=== PATIENT | female | born 1940 | race Caucasian/White ===

== ENCOUNTER → 2018-04-05 12:46 | Outpatient (CLI) | payer OTHER, SELFPAY ==
--- NOTE | 2018-04-05 | DI.MG.S_ITS ---
BILATERAL DIGITAL SCREENING MAMMOGRAM 3D/2D WITH CAD: 04/05/2018 CLINICAL: Routine screening. Family history of breast cancer. Comparison is made to exams dated: 03/22/2017 mammogram, 03/20/2016 mammogram, 03/06/2016 mammogram, and 03/05/2015 mammogram - [facility]. The tissue of both breasts is heterogeneously dense. This may lower the sensitivity of mammography. Current study was also evaluated with a Computer Aided Detection (CAD) system. There are benign calcifications in the left breast. No significant masses, calcifications, or other findings are seen in either breast. There has been no significant interval change. IMPRESSION: There is no mammographic evidence of malignancy. A 1 year screening mammogram is recommended. This exam was interpreted at Station ID: [id number]. NOTE: For mammograms, a report in lay terms will be sent to the patient. Approximately 15% of breast malignancies will not be visualized mammographically. In the management of a palpable breast mass, a negative mammogram must not discourage biopsy of a clinically suspicious lesion. Electronically Signed By: Agnes sabillon/jamison:04/05/2018 16:13:25 letter sent: Normal Exam ACR BI-RADS Category 2: Benign Finding(s) 3342F
== END ==
PROVIDERS: PCP Internal Medicine; Visit Provider Internal Medicine
DX: Z12.31 Encounter for screening mammogram for malignant neoplasm of breast (principal); Z80.3 Family history of malignant neoplasm of breast
CPT/HCPCS: 77063; 77067

== ENCOUNTER → 2018-08-16 13:56 | Outpatient (CLI) | payer MEDICARE, SELFPAY | PROVIDERS: PCP Internal Medicine; Visit Provider Ophthalmology | DX: H16.201 Unspecified keratoconjunctivitis, right eye (principal) | CPT/HCPCS: 87070; 87147; 87205; 87252 ==

== ENCOUNTER → 2018-08-26 08:12 | Outpatient (CLI) | payer MEDICARE, SELFPAY ==
[2018-08-26 09:51] LABS: Alanine Aminotransferase 42 IU/L (9-52); Aspartate Aminotransferase 25 IU/L (14-36); BUN Creatinine Ratio 28.6 (6-22); Blood Urea Nitrogen 20 mg/dL (7-17); Calcium 10.2 mg/dL (8.4-10.2); Carbon Dioxide 28 mmol/L (22-32); Chloride 104 mmol/L (98-107); Cholesterol 170 mg/dL (140-199); Estimated Glomerular Filt Rate > 60.0 mL/min (>60); Glucose 100 mg/dL (80-110); HDL Cholesterol 60 mg/dL (40-60); HEMOLYSIS < 15 (0-50); LDL Cholesterol Calculated 93 mg/dL (<100); Potassium 4.8 mmol/L (3.4-5.1); Sodium 139 mmol/L (137-145); Triglycerides 86 mg/dL (35-150)
[2018-08-26 10:36] LABS: TSH w/ Reflex to FT4 3.78 uIU/mL (0.47-4.68)
== END ==
PROVIDERS: PCP Internal Medicine; Visit Provider Internal Medicine
DX: E78.00 Pure hypercholesterolemia, unspecified (principal); R68.89 Other general symptoms and signs; Z13.1 Encounter for screening for diabetes mellitus
CPT/HCPCS: 36415; 80048; 80061; 84443; 84450; 84460

== ENCOUNTER → 2018-08-28 14:18 | Outpatient (CLI) | payer MEDICARE, SELFPAY | PROVIDERS: PCP Internal Medicine; Visit Provider Internal Medicine | DX: Z13.820 Encounter for screening for osteoporosis (principal); M85.851 Other specified disorders of bone density and structure, right thigh; Z82.62 Family history of osteoporosis | CPT/HCPCS: 77080 ==

== ENCOUNTER → 2018-12-05 11:07 | Outpatient (CLI) | payer MEDICARE, SELFPAY ==
[2018-12-05 12:24] LABS: Estimated Glomerular Filt Rate > 60.0 mL/min (>60)
== END ==
PROVIDERS: PCP Internal Medicine; Visit Provider Internal Medicine Gastroenterology
DX: R68.89 Other general symptoms and signs (principal)
CPT/HCPCS: 36415; 82565

== ENCOUNTER → 2019-01-03 12:30 | Outpatient (CLI) | payer MEDICARE, SELFPAY | PROVIDERS: PCP Internal Medicine; Visit Provider Internal Medicine Gastroenterology | DX: R68.89 Other general symptoms and signs (principal) ==

== ENCOUNTER → 2019-01-03 12:33 | Outpatient (CLI) | payer MEDICARE, SELFPAY ==
--- NOTE | 2019-01-03 | DI.CT.S_ITS ---
PROCEDURE: CT ABDOMEN PELVIS W CON INDICATIONS: other general symptoms and signs TECHNIQUE: After the administration of oral and intravenous contrast, 5 mm thick sections acquired from the diaphragms to the symphysis. 5 mm thick coronal and sagittal reformats were performed. For radiation dose reduction, the following was used: automated exposure control, adjustment of mA and/or kV according to patient size. COMPARISON: None. FINDINGS: Image quality: Excellent. ABDOMEN: Lung bases: Bilateral lower lobe scarring/atelectasis. Heart size is normal. Solid organs: Hepatic steatosis. Gallbladder unremarkable. Biliary system is non-dilated. 7 mm hypoattenuating lesion in the body of the pancreas, too small to characterize accurately. Spleen is normal in size and enhancement. No adrenal nodules. Kidneys are normal in size and enhancement, without hydronephrosis. Bilateral simple appearing renal cysts, measuring up to 7.2 cm on the right. Peritoneum and bowel: No evidence of bowel obstruction. No discrete colon mass identified. No free fluid or air. Incidental diverticulosis. Normal appendix Nodes and vessels: No retroperitoneal or mesenteric adenopathy. Aorta and inferior vena cava are normal in caliber. Small fat-containing umbilical hernia. PELVIS: Genitourinary: Bladder wall thickness is normal. Heterogeneous appearance of the uterus which could represent uterine fibroids although this could be further assessed with ultrasound. The Miscellaneous: No inguinal hernias or adenopathy. Bones: No suspicious bony lesions. No vertebral body compression fractures. IMPRESSION: No specific evidence of metastatic disease identified. No lymphadenopathy identified. Hepatic steatosis without focal liver lesion. Nonspecific hypoattenuating pancreatic lesion. This could be further assessed with continued surveillance with CT in one year. If clinically warranted, pancreatic protocol MRI could be considered. Colonic diverticulosis. Dictated by: Mundo Soto M.D. on 01/03/2019 at 15:19 Approved by: Mundo Soto M.D. on 01/03/2019 at 15:32
[2019-01-03 13:04] LABS: Estimated Glomerular Filt Rate > 60.0 mL/min (>60)
== END ==
PROVIDERS: Internal Medicine Gastroenterology; PCP Internal Medicine; Visit Provider Internal Medicine
DX: R68.89 Other general symptoms and signs (principal)
CPT/HCPCS: 36415; 74177; 82565; Q9967

== ENCOUNTER → 2019-04-07 10:58 | Outpatient (CLI) | payer MEDICARE, SELFPAY ==
--- NOTE | 2019-04-07 | DI.MG.S_ITS ---
BILATERAL DIGITAL SCREENING MAMMOGRAM 3D/2D WITH CAD: 04/07/2019 CLINICAL: Routine screening. Family history of breast cancer. Comparison is made to exams dated: 04/05/2018 mammogram and 03/22/2017 mammogram - [facility]. The tissue of both breasts is heterogeneously dense. This may lower the sensitivity of mammography. Current study was also evaluated with a Computer Aided Detection (CAD) system. There are benign calcifications in the left breast. No significant masses, calcifications, or other findings are seen in either breast. There has been no significant interval change. IMPRESSION: There is no mammographic evidence of malignancy. A 1 year screening mammogram is recommended. This exam was interpreted at Station ID: [id number]. NOTE: For mammograms, a report in lay terms will be sent to the patient. Approximately 15% of breast malignancies will not be visualized mammographically. In the management of a palpable breast mass, a negative mammogram must not discourage biopsy of a clinically suspicious lesion. Electronically Signed By: Fatimah lynn/jamison:04/07/2019 14:33:55 letter sent: Normal Exam ACR BI-RADS Category 2: Benign Finding(s) 3342F
== END ==
PROVIDERS: PCP Internal Medicine; Visit Provider Internal Medicine
DX: Z12.31 Encounter for screening mammogram for malignant neoplasm of breast (principal); Z80.3 Family history of malignant neoplasm of breast
CPT/HCPCS: 77063; 77067

== ENCOUNTER → 2019-10-28 12:46 | Outpatient (CLI) | payer MEDICARE, SELFPAY ==
--- NOTE | 2019-10-28 | DI.MRI.S_ITS ---
PROCEDURE: MR ABDOMEN WO/W CON INDICATIONS: Disease of pancreas, unspecified TECHNIQUE: Coronal HASTE, axial 2D FLASH in- and [id number]; axial breath-hold T2 FSE with fat saturation from the hepatic dome to the iliac crests. Oblique coronal thin-slice and radial thick slab HASTE through the biliary system. Dynamic axial VIBE during administration of contrast. Post-contrast coronal VIBE or 2D FLASH with fat saturation from the hepatic dome to the iliac crests. Optional diffusion weighted imaging and ADC may be performed. COMPARISON: [facility], CT, CT ABDOMEN PELVIS W CON, 01/03/2019, 13:52. FINDINGS: Image quality: There is motion artifact limiting evaluation Pancreas and biliary system: Within the body of the pancreas, there is a small oval thin-walled cyst demonstrated measuring up to 0.8 cm. There is possible communication with the main pancreatic duct although evaluation is limited by motion artifact. No definite associated enhancement following contrast administration. There is a small cystic lesion also demonstrated in the pancreatic tail measuring up to 0.4 cm. No definite associated enhancement. The main pancreatic duct is nondistended. 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 No discrete solid pancreatic mass identified. The gallbladder appears within normal limits without gallstones. There is mild biliary ductal dilatation, with the common bile duct measuring up to 1.3 cm. No filling defects to suggest choledocholithiasis. No discrete obstructing ampullary or pancreatic mass visualized. Solid organs: Liver is normal in size and enhancement. Spleen is normal in size and enhancement. There is mild thickening of the left adrenal gland redemonstrated with a definite nodule. Kidneys demonstrate no hydronephrosis. There are multiple bilateral renal cysts redemonstrated measuring up to 7.8 cm and the right kidney. Nodes and vessels: No retroperitoneal or mesenteric adenopathy by size criteria. Aorta and inferior vena cava are normal in size. Bowel and peritoneum: Visualized bowel loops are normal in caliber throughout. No free fluid. Lung bases: No basal pleural effusions. Heart size is normal. Bones and soft tissues: No ventral hernias. Bone marrow is normal in overall signal. IMPRESSION: 1. Small cystic lesion redemonstrated in the pancreatic body as well as a smaller cystic lesion in the pancreatic tail. 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 Given lesion size and patient age, followup is recommended in 2 years to demonstrate stability as per ACR white paper recommendations. 2. Increased biliary ductal dilatation without evidence of choledocholithiasis or a discrete obstructing mass. Recommend correlation with laboratory values and if indicated further evaluation with ERCP. Dictated by: Justin Meadows M.D. on 10/28/2019 at 16:41 Approved by: Justin Meadows M.D. on 10/28/2019 at 16:53
== END ==
PROVIDERS: PCP Internal Medicine; Referring Provider Internal Medicine Gastroenterology; Visit Provider Internal Medicine Gastroenterology
DX: K86.9 Disease of pancreas, unspecified (principal); K83.8 Other specified diseases of biliary tract; N28.1 Cyst of kidney, acquired
CPT/HCPCS: 74183

== ENCOUNTER → 2020-02-03 09:14 | Outpatient (CLI) | payer MEDICARE, SELFPAY ==
--- NOTE | 2020-02-03 | DI.MRI.S_ITS ---
PROCEDURE: MR ABDOMEN WO/W CON INDICATIONS: DISEASE OF PANCREAS TECHNIQUE: Coronal HASTE, axial 2D FLASH in- and [id number]; axial breath-hold T2 FSE with fat saturation from the hepatic dome to the iliac crests. Oblique coronal thin-slice and radial thick slab HASTE through the biliary system. Dynamic axial VIBE during administration of contrast. Post-contrast coronal VIBE or 2D FLASH with fat saturation from the hepatic dome to the iliac crests. Optional diffusion weighted imaging and ADC may be performed. COMPARISON: [facility], CT, CT ABDOMEN PELVIS W CON, 01/03/2019, 13:52. [facility], MR, MR ABDOMEN WO/W CON, 10/28/2019, 13:13. FINDINGS: Image quality: There is mild motion artifact limiting evaluation. Pancreas and biliary system: Within the body of the pancreas, there is a multi lobulated cystic lesion inferior to the pancreatic duct measuring up to approximately 0.8 cm in transverse dimension by 0.8 cm in anteroposterior dimension by 1.3 cm in craniocaudal dimension. The findings are stable in size compared to the prior MRI study. There is suspected communication with the main pancreatic duct with evaluation again limited by motion artifact. Within the pancreatic tail, there is a small cystic lesion measuring up to 0.4 cm redemonstrated which appears similar to the prior study. The cystic lesions demonstrate no definite evidence of internal enhancement with evaluation limited by motion artifact. No discrete solid pancreatic mass identified. The main pancreatic duct is normal in caliber measuring up to approximately 0.3 cm. There is mild intrahepatic biliary ductal dilatation redemonstrated as well as dilatation of the extrahepatic ducts. The common bile duct measures up to 1.2 cm with tapering distally into the ampulla of Vater. No filling defect to suggest choledocholithiasis. No discrete obstructing mass demonstrated at the ampulla or in the pancreas. The gallbladder appears within normal limits without gallstones. Solid organs: No discrete hepatic mass or abnormal enhancement with evaluation limited by motion artifact. The liver demonstrates mild heterogeneous signal dropout on out of phase imaging consistent with fatty infiltration. Spleen is normal in size. No adrenal nodules. Kidneys demonstrate no hydronephrosis. There are bilateral renal cysts measuring up to 7.9 cm in the right kidney. These include 3 cysts in the right kidney with intrinsic T1 hyperintensity compatible with hemorrhagic cysts. Nodes and vessels: No retroperitoneal or mesenteric adenopathy by size criteria. Aorta and inferior vena cava are normal in size. Bowel and peritoneum: Visualized bowel loops are normal in caliber. No free fluid. Lung bases: No basal pleural effusions. Heart size is normal. Bones and soft tissues: No ventral hernias. Bone marrow is normal in overall signal. IMPRESSION: 1. Multi lobulated cystic lesion redemonstrated within the pancreatic body as well as a small cystic lesion in the pancreatic tail. 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 Recommend continued follow-up in 12 months to demonstrate stability if clinically indicated. 2. Biliary ductal dilatation redemonstrated without evidence of choledocholithiasis or a discrete obstructing mass. The findings are nonspecific but appears similar to the prior study and may reflect ampullary stenosis. 3. Multiple bilateral renal cysts redemonstrated including 3 probable hemorrhagic cysts in the right kidney. Dictated by: Justin Meadows M.D. on 02/03/2020 at 13:51 Approved by: Justin Meadows M.D. on 02/03/2020 at 14:11
== END ==
PROVIDERS: PCP Internal Medicine; Referring Provider Internal Medicine Gastroenterology; Visit Provider Internal Medicine Gastroenterology
DX: K86.9 Disease of pancreas, unspecified (principal); K83.8 Other specified diseases of biliary tract; N28.1 Cyst of kidney, acquired
CPT/HCPCS: 74183

== ENCOUNTER → 2020-02-24 08:18 | Outpatient (CLI) | payer MEDICARE, SELFPAY ==
[2020-02-24 09:53] LABS: Alanine Aminotransferase 29 IU/L (<35); Albumin 4.2 g/dL (3.5-5.0); Albumin Globulin Ratio 1.2 (1.0-2.8); Alkaline Phosphatase 48 U/L (38-126); Aspartate Aminotransferase 26 IU/L (14-36); BUN Creatinine Ratio 23.6 (6-22); Bilirubin Total 0.9 mg/dL (0.2-1.3); Blood Urea Nitrogen 17 mg/dL (7-17); Carbon Dioxide 27 mmol/L (22-32); Chloride 106 mmol/L (98-107); Cholesterol 156 mg/dL (140-199); Estimated Glomerular Filt Rate > 60.0 mL/min (>60); Globulin 3.5 g/dL (1.7-4.1); Glucose 107 mg/dL (80-110); HDL Cholesterol 55 mg/dL (40-60); HEMOLYSIS < 15 (0-50); LDL Cholesterol Calculated 82 mg/dL (<100); Potassium 4.2 mmol/L (3.4-5.1); Sodium 139 mmol/L (137-145); Total Protein 7.7 g/dL (6.3-8.2); Triglycerides 95 mg/dL (35-150)
== END ==
PROVIDERS: PCP Internal Medicine; Referring Provider Internal Medicine; Visit Provider Internal Medicine
DX: M85.80 Other specified disorders of bone density and structure, unspecified site (principal); E78.5 Hyperlipidemia, unspecified
CPT/HCPCS: 36415; 80053; 80061

== ENCOUNTER → 2020-04-13 10:49 | Outpatient (CLI) | payer MEDICARE, SELFPAY ==
--- NOTE | 2020-04-13 | DI.MG.S_ITS ---
BILATERAL DIGITAL SCREENING MAMMOGRAM 3D/2D WITH CAD: 04/13/2020 CLINICAL: Routine screening. Family history of breast cancer. Comparison is made to exams dated: 04/07/2019 mammogram, 04/05/2018 mammogram, 03/22/2017 mammogram, 03/06/2016 mammogram, and 03/05/2015 mammogram - [facility]. The tissue of both breasts is heterogeneously dense. This may lower the sensitivity of mammography. Current study was also evaluated with a Computer Aided Detection (CAD) system. There are benign calcifications in both breasts. No significant masses, calcifications, or other findings are seen in either breast. There has been no significant interval change. IMPRESSION: BENIGN There is no mammographic evidence of malignancy. A 1 year screening mammogram is recommended. This exam was interpreted at Station ID: [id number]. NOTE: For mammograms, a report in lay terms will be sent to the patient. Approximately 15% of breast malignancies will not be visualized mammographically. In the management of a palpable breast mass, a negative mammogram must not discourage biopsy of a clinically suspicious lesion. Electronically Signed By: Esau merritt/jamison:04/13/2020 16:55:01 letter sent: Normal Exam ACR BI-RADS Category 2: Benign Finding(s) 3342F
== END ==
PROVIDERS: PCP Internal Medicine; Referring Provider Internal Medicine; Visit Provider Internal Medicine
DX: Z12.31 Encounter for screening mammogram for malignant neoplasm of breast (principal); Z80.3 Family history of malignant neoplasm of breast
CPT/HCPCS: 77063; 77067

== ENCOUNTER → 2020-06-04 10:36 | Outpatient (CLI) | payer MEDICARE, SELFPAY ==
[2020-06-04] MEDS: COVID-19 VACC #1, MRNA(MOD) 100 MCG/0.5 ML VIAL IM (10:48)
== END ==
PROVIDERS: PCP Internal Medicine; Visit Provider Internal Medicine
DX: Z23 Encounter for immunization (principal)
CPT/HCPCS: 0011A; 91301

== ENCOUNTER → 2020-07-02 10:59 | Outpatient (CLI) | payer MEDICARE, SELFPAY ==
[2020-07-02] MEDS: COVID-19 VACC #2, MRNA(MOD) 100 MCG/0.5 ML VIAL IM (11:05)
== END ==
PROVIDERS: PCP Internal Medicine; Visit Provider Internal Medicine
DX: Z23 Encounter for immunization (principal)
CPT/HCPCS: 0012A; 91301

== ENCOUNTER → 2020-09-15 11:26 | Outpatient (CLI) | payer OTHER, SELFPAY ==
[2020-09-15 11:47] LABS: COVID19 -Nasal RAPID Negative (Negative)
== END ==
PROVIDERS: PCP Internal Medicine; Visit Provider Obstetrics & Gynecology
DX: Z01.812 Encounter for preprocedural laboratory examination (principal)
CPT/HCPCS: 87635

== ENCOUNTER 2020-09-16 06:55 | Day surgery (SDC) | payer OTHER, SELFPAY ==
[2020-09-09 12:29] VITALS: BMI 23.9
[2020-09-16] VITALS (18 sets, daily range): BP systolic 106–153; BP diastolic 51–74; PULSE 61–71; RESP 10–18; TEMP 35.6–37.2; O2SAT 90–100; BMI 23.9
--- NOTE | 2020-09-16 | PATH_ITS ---
[facility] Accession Number: [id number] . 01 Material submitted: . uterus - UTERUS; BILATERAL FALLOPIAN TUBES AND OVARIES . 02 Diagnosis: Uterus, Bilateral Fallopian Tubes and Ovaries, Hysterectomy and Bilateral Salpingo-oophorectomy: 1. Multiple leiomyomas, negative for atypia. 2. Inactive/noncycling endometrium. 3. Benign endocervical polyp. 4. Paratubal cysts. 5. Bilateral ovaries and fallopian tubes with no significant diagnostic abnormality. 6. No evidence of malignancy or atypical hyperplasia. [facility] 09/22/2020 1301 Local . 02 Electronically signed: . Lynne Diamond MD, Pathologist NPI- [id number] . 01 Gross description: . The specimen is received in formalin, labeled uterus, bilateral fallopian tubes and ovaries and consists of a 67-gram uterus, cervix, and bilateral fallopian tubes and ovaries. The serosa is salinas-pink and smooth with focal areas of hemorrhage and subserosal nodules. The salinas smooth to wrinkled ectocervix measures 5.0 x 3.2 cm and there is a 1.0 x 0.3 cm os. The cervix demonstrates a salinas-pink herringbone and cystic endocervical mucosa. The endometrial cavity measures 4.2 x 2.0 cm and displays a salinas-pink hemorrhagic glistening endometrium measuring 0.1 cm in thickness. The myometrium is salinas-pink and trabeculated, measuring up to 1.8 cm in thickness. There are multiple salinas-white whorled nodules ranging from 0.1-2.0 cm with no areas of hemorrhage, necrosis or cystic degeneration. Multiple myometrial nodules are focally calcified. The right ovary measures 1.5 x 1.5 x 1.0 cm. The external surface is salinas-pink with focal cautery artifact and dense fibrinous adhesions. The left ovary measures 3.0 x 1.0 x 0.8 cm. The external surface is sal[place] and smooth to cerebriform. Sectioning through the ovaries reveals a salinas ovarian stroma and the left ovary displays multiple salinas smooth-walled clear fluid-filled cysts ranging from 0.1-0.3 cm. The right fallopian tube measures 4.2 cm in length by up to 1.5 cm in diameter, and the left fallopian tube measures 5.5 cm in length by 0.7 cm in diameter. No fimbriae are identified on the right fallopian tube. The serosa is salinas-pink to pink-purple and smooth with fibrinous adhesions and paratubal cysts ranging from 0.1-0.3 cm. Sectioning reveals a salinas-pink mucosa and a lumen measuring 0.5 cm in diameter. Display Screen [employer]ricator sections are submitted. . A1: anterior cervix. A2: posterior cervix. A3-A4: anterior uterus, full-thickness sections to include outside sales representative insurance myometrial nodules. A5-A6: posterior uterus, full-thickness sections to include outside sales representative insurance myometrial nodules. A7: outside sales representative insurance right ovary. A8-A9: right fallopian tube, central cross-sections and quadrisected tip. A10: outside sales representative insurance left ovary. A11-A12: left fallopian tube, cross-sections and bisected fimbria. (EA:[id number]) /MRV 09/22/2020 [facility] Local . 02 Pathologist provided ICD-10: D25.9, N84.1 . 02 CPT . 265283 Performed at: 01 [facility] [address] [id number] MD Justin Metzger MD Phone: [phone] Performed at: [facility] [address] [place], [place] [id number] MD Lynne Diamond MD Phone: [phone]
[2020-09-16] MEDS: LACTATED RINGERS 1,000 ML 100 ML IV ×4 (07:37→22:53)
--- NOTE | 2020-09-16 07:37 | SUR.OPER ---
Lithotomy on padded OR bed. [place] Pad Positioner under torso. Head on pillow, arms padded and tucked at sides. Legs secured in padded yellow fins stirrups.
[2020-09-16 07:40] LABS: Add Manual Diff / Slide Review NO; Basophils Absolute Auto 100 /uL (0-100); Basophils Percent Auto 1.3 % (0-2); Eosinophils Absolute Auto 300 /uL (0-450); Eosinophils Percent Auto 4.5 % (2-4); Lymphocytes Absolute Auto 2200 /uL (1100-4500); Lymphocytes Percent Auto 37.3 % (25-40); Mean Corpuscular HGB Conc 34.9 % (30-36); Mean Corpuscular Hemoglobin 31.9 PG (26-34); Mean Corpuscular Volume 91.2 fL (80-100); Monocytes Absolute Auto 700 /uL (0-900); Monocytes Percent Auto 12.5 % (3-14); Neutrophils Absolute Auto 2600 /uL (1500-7000); Neutrophils Percent Auto 44.4 % (50-75); Platelet Count 219 X10^3/uL (150-400); Red Blood Cell Count 4.71 X10^6/uL (4.0-5.2); White Blood Cell Count 5.9 X10^3/uL (4.5-11.0)
[2020-09-16 07:52] LABS: BUN Creatinine Ratio 30.2 (6-22); Blood Urea Nitrogen 19 mg/dL (7-17); Calcium 9.3 mg/dL (8.4-10.2); Carbon Dioxide 23 mmol/L (22-32); Chloride 110 mmol/L (98-107); Estimated Glomerular Filt Rate > 60.0 mL/min (>60); Glucose 102 mg/dL (80-110); HEMOLYSIS < 15 (0-50); Potassium 3.9 mmol/L (3.4-5.1); Sodium 141 mmol/L (137-145)
--- NOTE | 2020-09-16 08:14 | PM.PREOP ---
Pre-operative Note COVID-19 COVID-19 status: Negative Result date/Date tested (Pos, Neg/Pending): 09/15/20 Interval Note History & Physical reviewed/Exam performed by Physician: Yes Changes to H&P: No H&P completed within 30 days and has changed as indicated here:: 09/07/20
[2020-09-16] MEDS: CEFAZOLIN 2 GM/100 ML FROZ.PIGGY IV (08:30)
[2020-09-16] MEDS: BUPIVACAINE 0.5% W/ EPI (PF) 30 ML VIAL INJ (09:14)
[2020-09-16] MEDS: ACETAMINOPHEN 325 MG TABLET 650 MG PO ×3 (11:46→23:41)
[2020-09-16] MEDS: IBUPROFEN 600 MG TABLET PO ×3 (13:02→23:40)
--- NOTE | 2020-09-16 13:04 | P.OP_ITS ---
Operative Date/Time/Diagnoses Date of procedure: 09/16/20 Time of procedure: 11:10 Pre-op diagnosis: Uterine prolapse Cystocele Rectocele Post-op diagnosis: same Procedure & Clinicians Procedure: Procedures Operation Date: 09/16/20 08:00 Actual Procedures Side Surgeon p Laparoscopic Assisted Vag Hysterectomy, Bilateral Salpingo-oophorectomy Funmi Reyes MD s Posterior Repair, Sacrospinous Ligament Fixation Funmi Reyes MD Indications: Uterine prolapse Cystocele Rectocele Symptomatic prolapse Surgeon: Funmi Reyes Motion Graphics Artist: Cindy Prieto Anesthesia Type: General and Local Operative Notes Findings: 8 week size prolapsed uterus Cystocele nonexistent after uterus removed Normal tubes and ovaries Large rectocele Closure Type: primary Specimen(s): left tube & ovary, right tube & ovary and uterus Applied: catheter (To continuous drainage) Estimated blood loss (mL): 100 Blood products transfused: none Procedure in detail: The patient was taken to the operating room where she was placed in the dorsal supine position. After adequate general endotracheal anesthesia was achieved, she was placed in the dorsal lithotomy position, and prepped and draped in the usual sterile fashion. A bivalve speculum was placed into the vagina, and a single-tooth tenaculum was placed on the anterior lip of the cervix. The cervical os was sequentially dilated until the ZUMI uterine manipulator could pass easily into the endometrial cavity. The single-tooth tenaculum was removed from the anterior lip of the cervix, and the bivalve speculum was removed from the vagina. Attention was then turned to the abdomen where 6 mL of half percent Marcaine with epinephrine were injected in the umbilical fold. A 5 mm incision was made. The varies needle was placed into the peritoneal cavity, and its placement confirmed by aspiration and drop test. The abdominal cavity was insufflated with 4 L of CO2. The varies needle was removed, and a 5 mm trocar was placed without difficulty. Initial inspection of the pelvis revealed the findings noted above. 2 other incisions were made midway between the pubic symphysis and umbilicus 4 cm lateral to the midline. These were 5 mm incisions. 25 mm trochars were placed under direct visualization. The right tube and ovary were grasped with an atraumatic grasper. The infundibulopelvic ligament on the right side was cauterized and cut with plasma kinetic. The round ligament and broad ligament were cauterized and cut. This was continued to the level of the uterine arteries. This was repeated on the patient's left side. The insurance are removed from the abdomen. Attention was then turned to the vagina where the ZUMI uterine manipulator was removed from the uterus. The cervix was grasped with a 4 tooth tenaculum. 10 mL of quarter percent Marcaine with epinephrine were injected circumferentially around the cervix. The cervix was circumscribed. The bladder and rectum were dissected off the lower uterine segment and cervix with an open moistened Ray-Tommy. The peritoneum was entered sharply with the Metzenbaum scissors anteriorly and a Jasper placed. The peritoneum was entered posteriorly with the Metzenbaum scissors and the long weighted speculum was placed into the posterior cul-de-sac. The uterosacral cardinal ligament complexes were clamped, transected, and suture ligated with 0 Vicryl. These were attached to hemostat. The uterine arteries were clamped, transected, and suture ligated with 0 Vicryl. The uterus was handed off for specimen with the tubes and ovaries. The peritoneum was closed with a pursestring suture with 2-0 Vicryl. The vaginal cuff was closed with 0 Vicryl with a series of simple interrupted sutures. The tagged sutures were cut. 2 Allis clamps were placed at the apex of the cystocele. 6 mL of half percent Marcaine with epinephrine were injected and an incision was made with a #10 blade between the 2 Allis clamps. Wide Allis clamps were placed on the midline of the cystocele approximately 7. The mucosa was undermined using the Metzenbaum scissors and the mucosa incised in the midline moving the wide Allis clamps to the edges of the mucosa. The mucosa was dissected off the underlying fascia using an open moistened Ray-Tommy and a #10 blade. The fascia was reapproximated with 0 Vicryl with a series of horizontal mattress sutures. The excess vaginal mucosa was excised. The mucosa was closed using simple interrupted sutures with 2-0 Vicryl including the underlying fascia to close the space. The weighted speculum was removed from the vagina. Allis clamps were placed at the mucocutaneous junction at the introitus. 6 mL of half percent Marcaine with epinephrine were injected. An incision was made with a #10 blade between the 2 Allis clamps, and a triangular piece of skin and underlying subcutaneous tissue was removed. Allis clamps were placed in the midline of the rectocele. 10 mL of half percent Marcaine with epinephrine were injected submucosally. The mucosa was undermined using the Metzenbaum scissors and the mucosa incised in the midline, moving the wide Allis clamps to the mucosal edges. The underlying fascia was dissected off of th mucosa using an open moistened Ray-Tommy and a #10 blade. The fascia was reapproximated using 0 Vicryl with a series of horizontal mattress sutures. The excess vaginal mucosa was excised. The mucosa was closed using a series of simple interrupted sutures with 2-0 Vicryl including the underlying fascia to close the space. On the perineum 0 Vicryl was used to reapproximate the levator muscle. The subcutaneous layer was closed with 2-0 Vicryl. The skin was closed with 3-0 chromic in a subcuticular fashion. Hemostasis was achieved. A Betadine moistened vaginal pack was placed into the vagina. A rectal exam was done and there were no sutures palpable in the rectum. The urine was clear. Sponge, lap, and instrument counts were correct ?-2. The patient tolerated the procedure well, was taken to PACU in stable condition. Complications: none Post-operative Condition: stable Disposition: PACU Plan for aftercare: To acute care after recovery
--- NOTE | 2020-09-16 15:58 | PC.NURSE ---
Assumed care of patient from the PACU at 1200. Patient in good spirits, denies pain, only reports pressure. VS stable, patient 99% on RA. Manzano is intact, draining clear, yellow urine. LR infusing @ 100cc/hr. Juanita pad was dry on transfer to Acute Care, but at 1455, pad was soiled and had saturated the bed, packing hanging with sanguineous drainage noted. Patient cleaned, packing remained intact, linen changed and new juanita pad placed at 1510. Patient up to chair, denies dizziness, lightheadedness or SOB, VS stable. Abdominal dsgs intact, midline has quarter size breakthrough bleeding. MD notified.
[2020-09-16] MEDS: DOCUSATE 250 MG CAPSULE PO (20:05)
[2020-09-17 04:30] VITALS: BP 122/61; PULSE 68; RESP 16; TEMP 37.3; O2SAT 93
[2020-09-17 05:42] LABS: Add Manual Diff / Slide Review NO; Basophils Absolute Auto 0 /uL (0-100); Basophils Percent Auto 0.3 % (0-2); Eosinophils Absolute Auto 0 /uL (0-450); Eosinophils Percent Auto 0.1 % (2-4); Hematocrit 35.7 % (36-46); Hemoglobin 12.3 g/dL (12.0-16.0); Lymphocytes Absolute Auto 1600 /uL (1100-4500); Lymphocytes Percent Auto 13.6 % (25-40); Mean Corpuscular HGB Conc 34.4 % (30-36); Mean Corpuscular Hemoglobin 31.4 PG (26-34); Mean Corpuscular Volume 91.3 fL (80-100); Monocytes Absolute Auto 1300 /uL (0-900); Monocytes Percent Auto 10.3 % (3-14); Neutrophils Absolute Auto 9200 /uL (1500-7000); Neutrophils Percent Auto 75.7 % (50-75); Platelet Count 202 X10^3/uL (150-400); Red Blood Cell Count 3.91 X10^6/uL (4.0-5.2); Red Cell Distribution Width 13.6 % (11.6-14.8); White Blood Cell Count 12.1 X10^3/uL (4.5-11.0)
[2020-09-17 05:46] LABS: BUN Creatinine Ratio 19.7 (6-22); Blood Urea Nitrogen 12 mg/dL (7-17); Calcium 8.7 mg/dL (8.4-10.2); Carbon Dioxide 24 mmol/L (22-32); Chloride 108 mmol/L (98-107); Estimated Glomerular Filt Rate > 60.0 mL/min (>60); Glucose 117 mg/dL (80-110); HEMOLYSIS < 15 (0-50); Potassium 4.4 mmol/L (3.4-5.1); Sodium 137 mmol/L (137-145)
[2020-09-17] MEDS: ACETAMINOPHEN 325 MG TABLET 650 MG PO (06:19)
[2020-09-17] MEDS: IBUPROFEN 600 MG TABLET PO (06:20)
--- NOTE | 2020-09-17 06:47 | PC.NURSE ---
Rojas discontinued as per provider order. 350 ML emptied. Waited around 5 minutes to see if any bleeding may start from the rojas being discontinued. No bleeding noted. Vaginal packing removed slowly and gently with no bleeding noted. Patient sat in recliner, knows to call if feels any bleeding occur. Has juanita pad and underwear on. Changed juanita pad with rojas discontinuation. Old blood, light on pad.
[2020-09-17 07:25] VITALS: BP 127/62; PULSE 55; RESP 16; TEMP 35.9; O2SAT 98
[2020-09-17] MEDS: DOCUSATE 250 MG CAPSULE PO (08:02)
--- NOTE | 2020-09-17 10:26 | PC.NURSE ---
Addendum entered by Mallorie Gomez R.N. 09/17/20 11:22: Patient given discharge instructions regarding f/u appointment, s/s of infection, medication and activity. Patient verbalized understanding. IV removed, patient tolerated. Patient dressed independently. Patient discharged home via wheelchair. Original Note: Patient A/O x 4, up to chair for breakfast. Reports voiding in restroom, unmeasured. Denies BM, reports flatus, BT active x 4. Patient reports pain has been controlled with scheduled Tylenol and Ibuprofen. Denies bleeding at this time. Stefanie pad dry. Patient tolerating general diet. Lungs CTA, 98% on RA. Pulses equal, denies SOB, chest pain, dizziness or lightheadedness. LR infusing @75. Call light in reach. beside at this time.
--- NOTE | 2020-09-17 13:09 | CM.IDA ---
Initial DCP Assessment Note Pt is an 80 yo female, resident of [place] , now POD#1 from p Laparoscopic Assisted Vag Hysterectomy, Bilateral Salpingo-oophorectomy and Posterior Repair, Sacrospinous Ligament Fixation by Dr Reyes PCP: Jessi Davidson Payer: [facility] Reviewed chart, pt discussed in multidisciplinary rounds this morning. Patient has been DC home today w/supportive spouse, patient indp and eager to get home this AM. Patient seen briefly getting ready to leave this AM and taken out via w/c. No needs from DC planning team RAMSEY Garcia
--- NOTE | 2020-09-24 04:06 | PM.DS.1 ---
History of Present Illness History of Present Illness Date Patient Seen: 09/17/20 Time Patient Seen: 10:30 Chief complaint: OPB Narrative: Patient is an 80-year-old postop day # 1 status post LAVH/BSO/posterior repair and sacral spinous ligament fixation. Her catheter and vaginal packing were removed earlier this morning. She has been able to void twice without the catheter. Minimal amount of drainage. No nausea or vomiting. Pain well controlled. She is tolerating a diet. Discharge Providers Provider Discharge Date: 09/17/20 Primary care physician: Jessi Davidson MD Discharge provider: Funmi Reyes MD Summary Hospital Course Discharge Diagnosis: Uterine prolapse Cystocele with rectocele LAVH/BSO Posterior repair with sacral spinous ligament fixation Hospital Course: Patient presented on September 16, 2020 for a scheduled LAVH/BSO, anterior and posterior repair with sacral spinous ligament fixation. She underwent LAVH BSO, posterior repair with sacral spinous ligament fixation without complication. She tolerated the diet on postop day 0. Her Manzano catheter and vaginal packing were removed early on postop day # 1. She has been able to void without the catheter. Minimal vaginal drainage. Is tolerating a diet. She is ambulating independently. No nausea or vomiting. She is discharged home. Status at Discharge Cognitive/behavioral status at discharge: oriented Functional status at discharge: independent ambulation Overall status at discharge: patient is progressing back to baseline Time Spent with Patient Time spent: Less than 30 minutes Exam Vital Signs (past 8 hours): Oxygen Delivery Method Room Air Oxygen Flow Rate 0 Narrative Exam Narrative: Generally: Patient is sitting up in chair, no acute distress Lungs: Clear to auscultation bilaterally Cardiovascular: Regular rate and rhythm Abdomen: Soft and flat. Good bowel sounds Incisions: Clean dry and intact with dressings Extremities: No edema, negative Homans Perineum: Dry Objective Labs Result Diagrams: 09/17/20 05:21 09/17/20 05:21 [facility] Medical History (Updated 09/09/20 @ 13:07 by Judith Arreola RN) Belching Cataracts, bilateral Chicken pox (~1950) Diverticular disease (~2015) Hypercholesterolemia Measles (~1945) Mumps (~1947) Osteopenia (~2019) Rosacea (~1989) Tinnitus Surgical History (Updated 09/09/20 @ 13:07 by Judith A Bear, RN) Anesthesia History of colonoscopy History of eye surgery (~2017) Hx of cataract surgery Hx of dilation and curettage Hx of removal of cyst Family History (Updated 09/06/20 @ 20:15 by Milana Pleitez) Father Stroke Mother Pneumonia Grandmother History of heart disease Grandmother History of heart disease Social History household members: spouse Smoking Status: Never smoker alcohol intake: current Discharge Plan Discharge Plan Patient Disposition: Home Provider Discharge Comment: Call with fever, chills, redness or drainage around the incisions or bleeding vaginally more than spotting to light Tylenol 650mg every 6 hours Ibuprofen 600mg every 6 hours Stool softner twice a day until back to normal Discharge orders & Medications Discharge Orders: Discharge (Order); Ordered 09/17/20 Ordered By: Funmi Reyes Prescriptions: Continued atorvastatin [Lipitor] 10 mg tablet 5 mg PO DAILY RF: 0 ibuprofen 200 mg Tablet 200 mg PO Q6H PRN (Reason: Pain (Scale Score 4-6)) RF: 0 Follow up/Referrals: Funmi Reyes MD [Physician] - 2 Weeks (Telehealth visit in 2 weeks) Diet/Activity/Treatments Diet: Regular Activity: No heavy lifting Skin/Wound/Dressing Care Report to your healthcare provider any signs of infection, such as:: chills, fever, increased pain, unusual drainage and unusual redness Dressing: Remove outer pink dressings with attached guaze in 3 days after daily shower Visit Report/Discharge Packet Instructions: DI for Hysterectomy, DI for Laparoscopy Stand Alone Forms: Surgery Discharge Discharge Data Primary Care Provider: Jessi Davidson Attending Provider: Funmi Reyes Quality VTE Deep Vein Thrombosis/Pulmonary Embolism Present on Admission: Yes
== END 2020-09-17 11:10 | disposition home or self-care (01) ==
LOC: OR 06:56 → AC 10:18
PROVIDERS: PCP Internal Medicine; Referring Provider Internal Medicine; Visit Provider Obstetrics & Gynecology
PROC: 0UT9FZZ Resection of Uterus, Via Natural or Artificial Opening With Percutaneous Endoscopic Assistance (ICD-10-PCS; CPT 58552; principal; 2020-09-16 08:00)
PROC: (CPT 58552; 2020-09-16 08:00)
DX: N81.89 Other female genital prolapse (principal); N81.10 Cystocele, unspecified; N81.6 Rectocele
CPT/HCPCS: 58552; 57260; 36415; 80048; 85025; J0690; J1100; J2405; J2704; J3010

== ENCOUNTER → 2020-10-06 10:24 | Outpatient (CLI) | payer OTHER, SELFPAY ==
[2020-09-16 12:05] VITALS: BMI 23.9
== END ==
PROVIDERS: PCP Internal Medicine; Visit Provider Obstetrics & Gynecology
DX: R30.0 Dysuria (principal)
CPT/HCPCS: 87086

== ENCOUNTER → 2021-04-25 12:29 | Outpatient (CLI) | payer OTHER, SELFPAY ==
[2020-09-16 12:05] VITALS: BMI 23.9
--- NOTE | 2021-04-25 | DI.MG.S_ITS ---
BILATERAL DIGITAL SCREENING MAMMOGRAM 3D/2D WITH CAD: 04/25/2021 CLINICAL: Routine screening. Family history of breast cancer. Comparison is made to exams dated: 04/13/2020 mammogram, 04/07/2019 mammogram, and 04/05/2018 mammogram - [facility]. The tissue of both breasts is heterogeneously dense. This may lower the sensitivity of mammography. Current study was also evaluated with a Computer Aided Detection (CAD) system. There are benign calcifications in both breasts. No significant masses, calcifications, or other findings are seen in either breast. A cluster of calcifications in the inner left breast on the CC view only is on the first slice and is therefore skin calcifications. There has been no significant interval change. IMPRESSION: BENIGN There is no mammographic evidence of malignancy. A 1 year screening mammogram is recommended. This exam was interpreted at Station ID: [id number]. NOTE: For mammograms, a report in lay terms will be sent to the patient. Approximately 15% of breast malignancies will not be visualized mammographically. In the management of a palpable breast mass, a negative mammogram must not discourage biopsy of a clinically suspicious lesion Electronically Signed By: Jose Ortega acr/:04/25/2021 13:03:20 letter sent: Normal Exam ACR BI-RADS Category 2: Benign Finding(s) [id number]
== END ==
PROVIDERS: Family Provider Internal Medicine; PCP Internal Medicine; Referring Provider Internal Medicine; Visit Provider Internal Medicine
DX: Z12.31 Encounter for screening mammogram for malignant neoplasm of breast (principal); Z80.3 Family history of malignant neoplasm of breast
CPT/HCPCS: 77063; 77067

== ENCOUNTER 2021-05-19 10:30 | Outpatient (RCR) | payer OTHER, SELFPAY ==
[2020-09-16 12:05] VITALS: BMI 23.9
--- NOTE | 2021-04-14 13:38 | PT.OIE ---
Current Diagnoses Cystocele, midline (04/14/21) Past Medical History (Last Updated 09/09/20 @ 13:07 by Judith Arreola RN) Belching Cataracts, bilateral Chicken pox (~1950) Diverticular disease (~2015) History of colonoscopy History of eye surgery (~2017) Hx of cataract surgery Hx of dilation and curettage Hx of removal of cyst Hypercholesterolemia Measles (~1945) Mumps (~1947) Osteopenia (~2019) Rosacea (~1989) Tinnitus Past Surgical History (Last Updated 09/09/20 @ 13:07 by Judith Arreola RN) Anesthesia History of colonoscopy History of eye surgery (~2017) Hx of cataract surgery Hx of dilation and curettage Hx of removal of cyst Visit Care Team Role Provider Type Jessi Davidson MD Attending Provider Physician Family Provider Primary Care Provider Referring Provider Specialty: Internal Medicine Address: [address] [place] [address] Email: [email or web address] Physical Therapy Initial Evaluation PT-OP-A Visit Information Start: 04/14/21 09:06 Freq: Status: Active Protocol: Document 04/14/21 09:00 AMB (Rec: 04/14/21 11:15 AMB [email or web address]) Out-Patient Physical Therapy Visit Information Visit Information Visit Type Initial Evaluation Visit Start Time 09:00 Visit Stop Time 09:45 Total Visit Minutes 45 Visit Number 1 PT-OP-B Current Condition Start: 04/14/21 09:06 Freq: Status: Active Protocol: Document 04/14/21 09:00 AMB (Rec: 04/14/21 09:59 AMB [id number]) Current Condition History of Current Condition Onset Date September 2020 Current Complaints Nervous about bearing down to have a bowel movement after prolapse surgery History of Current Condition [place] had a hysterectomy back in September for prolapse. She has a long history of constipation and diarrhea, worried about pushing to have a bowel movement hurting the surgery. History of vaginal deliveries with episiotomy. Did have cystocele and rectocele before surgery. Treatment Goals Patient/Caregiver Goals Be able to have a bowel movement without fear Prior Functional Status Baseline Function- ADL's Independent Baseline Function- Mobility Independent Current Functional Impairments (Reported) Functional Limitations- ADL's Difficulty with bowel movements after prolapse surgery Personal Factors Other Personal Factors That May Effect Osteoporosis Therapy/Recovery PT-OP-I Pelvic Floor Start: 04/14/21 09:06 Freq: Status: Active Protocol: Document 04/14/21 09:00 AMB (Rec: 04/14/21 13:38 AMB [email or web address]) Pelvic Floor Assessment Urine Pelvic Floor Surgery Yes: lap/vaginal hysterectomy posterior repair sacrospi Urinary Symptoms Falling Out Feeling/Heavy Leakage Size Small Leakage Cause Cough,Sneeze Other Leakage Causes sit to stand Voiding Frequency 6/day Nocturia 2-3 Urine Pad Type Panty Liner Bowel Bowel Symptoms Constipation,Fecal Leakage [place] Stool Chart Comments varies between 1-7 Comments Pelvic Floor Comments [place] declined internal exam today as she was not aware that that was a part of pelvic floor PT. She does have rare fecal incontinence associated with diarrhea. Long history of diarrhea/constipation. Drinks maybe 24oz of water a day. Does take fiber supplement but otherwise doesn 't take stool softeners. Unsure of how to do a kegel. PT-OP-T Assessment and Plan Start: 04/14/21 09:06 Freq: Status: Active Protocol: Document 04/14/21 09:00 AMB (Rec: 04/14/21 13:38 AMB [email or web address]) Physical Therapy Assessment Rehab Potential Rehabilitation Potential Good Evaluation Complexity Number of Personal Factors/Comorbidities 1-2 Number of Body Systems Impaired 3 Clinical Presentation at Evaluation Evolving Impairments Impairments Activity Tolerance,Functional Activities,Strength Goals Two Impairment constipation Short Term Goal (STG) [place] will increase her fluid consumption to at least 50 oz/ day. STG Duration 4 weeks Tie Hacker Goal (LTG) [place] will be independent with abdominal massage to help her manage her constipation. LTG Duration 8 weeks One Impairment Strength Short Term Goal (STG) [place] will contract her pelvic floor muscles for 5 seconds without compensations with her breath or accessory muscles. STG Duration 4 weeks Tie Hacker Goal (LTG) [place] will contract her pelvic floor while moving from sit to stand to reduce risk of future progression of prolapse . LTG Duration 8 weeks Assessment Summary Assessment [place] attends PT with a long history of diarrhea and constipaton. And concern regarding the constipation and her recent hysterectomy and surgery of rectocele and cystocele. She was educated in abdominal massage for constipation, and to increase her fluid intake. She was also verbally instructed in pelvic floor contraction but would benefit from further instruction in strengthening and managing constipation to avoid prolapse returning after her recent surgery. Physical Therapy Plan Frequency and Duration Frequency of Treatment 1x/Week Duration of Treatment 8 weeks Plan of Care Start Date 04/14/21 Plan of Care End Date 06/09/21 Therapeutic Interventions Therapeutic Interventions Home Exercise Program,Manual Therapy,Neuromuscular Re- education,Self-Care/Home Management,Therapeutic Activities,Therapeutic Exercises Modalities Biofeedback,Cold Pack/Ice Massage,Electric Stimulation, Hot Packs Next Visit Focus/Plan Next Note Type Treatment Note Next Visit Plan sEMG or internal exam to assess strength, further manage constipation sx, encourage increased fluid consumption
--- NOTE | 2021-04-14 13:39 | PT.OPPOC ---
Physical, Occupational & Speech Therapy At [facility] Current Diagnoses Cystocele, midline (04/14/21) Visit Care Team Role Provider Type Jessi Davidson MD Attending Provider Physician Family Provider Primary Care Provider Referring Provider Specialty: Internal Medicine Address: [address] [place] [address], [id number] Email: [email or web address] Plan Of Care PT-OP-T Assessment and Plan Start: 04/14/21 09:06 Freq: Status: Active Protocol: Document 04/14/21 09:00 AMB (Rec: 04/14/21 13:38 AMB [email or web address]) Physical Therapy Assessment Rehab Potential Rehabilitation Potential Good Evaluation Complexity Number of Personal Factors/Comorbidities 1-2 Number of Body Systems Impaired 3 Clinical Presentation at Evaluation Evolving Impairments Impairments Activity Tolerance,Functional Activities,Strength Goals Two Impairment constipation Short Term Goal (STG) [place] will increase her fluid consumption to at least 50 oz/ day. STG Duration 4 weeks Rug Cutter Helper Goal (LTG) [place] will be independent with abdominal massage to help her manage her constipation. LTG Duration 8 weeks One Impairment Strength Short Term Goal (STG) [place] will contract her pelvic floor muscles for 5 seconds without compensations with her breath or accessory muscles. STG Duration 4 weeks Halfway Goal (LTG) [place] will contract her pelvic floor while moving from sit to stand to reduce risk of future progression of prolapse . LTG Duration 8 weeks Assessment Summary Assessment [place] attends PT with a long history of diarrhea and constipaton. And concern regarding the constipation and her recent hysterectomy and surgery of rectocele and cystocele. She was educated in abdominal massage for constipation, and to increase her fluid intake. She was also verbally instructed in pelvic floor contraction but would benefit from further instruction in strengthening and managing constipation to avoid prolapse returning after her recent surgery. Physical Therapy Plan Frequency and Duration Frequency of Treatment 1x/Week Duration of Treatment 8 weeks Plan of Care Start Date 04/14/21 Plan of Care End Date 06/09/21 Therapeutic Interventions Therapeutic Interventions Home Exercise Program,Manual Therapy,Neuromuscular Re- education,Self-Care/Home Management,Therapeutic Activities,Therapeutic Exercises Modalities Biofeedback,Cold Pack/Ice Massage,Electric Stimulation, Hot Packs Next Visit Focus/Plan Next Note Type Treatment Note Next Visit Plan sEMG or internal exam to assess strength, further manage constipation sx, encourage increased fluid consumption Plan of Care Dates Plan of Care Start Date 04/14/21 Plan of Care End Date 06/09/21 Electronically Signed by: Stephanie Ramírez, PT 04/14/21 [id number] Please Sign and Return: I have reviewed this Plan of Care and certify that the skilled therapy services above are required to meet the patient?s needs. Physician Signature Date Printed Name and Credentials Clinical Instructor Signature Printed Name and Credentials
--- NOTE | 2021-04-22 15:24 | PT.OTN ---
Current Diagnoses Cystocele, midline (04/22/21) Physical Therapy Treatment Note PT-OP-A Visit Information Start: 04/14/21 09:06 Freq: Status: Active Protocol: Document 04/22/21 13:00 AMB (Rec: 04/22/21 13:57 AMB [id number]) Out-Patient Physical Therapy Visit Information Visit Information Visit Type Treatment Note Visit Start Time 13:00 Visit Stop Time 13:45 Total Visit Minutes 45 Visit Number 2 PT-OP-B Current Condition Start: 04/14/21 09:06 Freq: Status: Active Protocol: Document 04/14/21 09:00 AMB (Rec: 04/14/21 09:59 AMB [id number]) Current Condition History of Current Condition Onset Date September 2020 Current Complaints Nervous about bearing down to have a bowel movement after prolapse surgery History of Current Condition [place] had a hysterectomy back in September for prolapse. She has a long history of constipation and diarrhea, worried about pushing to have a bowel movement hurting the surgery. History of vaginal deliveries with episiotomy. Did have cystocele and rectocele before surgery. Treatment Goals Patient/Caregiver Goals Be able to have a bowel movement without fear Prior Functional Status Baseline Function- ADL's Independent Baseline Function- Mobility Independent Current Functional Impairments (Reported) Functional Limitations- ADL's Difficulty with bowel movements after prolapse surgery Personal Factors Other Personal Factors That May Effect Osteoporosis Therapy/Recovery PT-OP-C Subjective Start: 04/14/21 09:06 Freq: Status: Active Protocol: Document 04/22/21 13:00 AMB (Rec: 04/22/21 13:57 AMB [id number]) OP-PT Subjective Patient Comments Patient Comments Pt did have some soreness in glutes this week. PT-OP-I Pelvic Floor Start: 04/14/21 09:06 Freq: Status: Active Protocol: Document 04/14/21 09:00 AMB (Rec: 04/14/21 13:38 AMB [email or web address]) Pelvic Floor Assessment Urine Pelvic Floor Surgery Yes: lap/vaginal hysterectomy posterior repair sacrospi Urinary Symptoms Falling Out Feeling/Heavy Leakage Size Small Leakage Cause Cough,Sneeze Other Leakage Causes sit to stand Voiding Frequency 6/day Nocturia 2-3 Urine Pad Type Panty Liner Bowel Bowel Symptoms Constipation,Fecal Leakage [place] Stool Chart Comments varies between 1-7 Comments Pelvic Floor Comments [place] declined internal exam today as she was not aware that that was a part of pelvic floor PT. She does have rare fecal incontinence associated with diarrhea. Long history of diarrhea/constipation. Drinks maybe 24oz of water a day. Does take fiber supplement but otherwise doesn 't take stool softeners. Unsure of how to do a kegel. PT-OP-Q Treatments Start: 04/14/21 09:06 Freq: Status: Active Protocol: Document 04/22/21 13:00 AMB (Rec: 04/22/21 15:23 AMB [email or web address]) Neuro Re-Education Treatment Other Activities sEMG Comments Pt improved with cues to contract around sensor and lift up and in. PT-OP-T Assessment and Plan Start: 04/14/21 09:06 Freq: Status: Active Protocol: Document 04/22/21 13:00 AMB (Rec: 04/22/21 13:57 AMB [id number]) Physical Therapy Assessment Assessment Summary Assessment Avg 3.4 max of 6.7, baseline 1 .8. with 10 second holds. Pt 's constipation is continuing. Feels like massage is helpful, but continues to vary between constipation and diarrhea. Physical Therapy Plan Next Visit Focus/Plan Next Note Type Treatment Note Next Visit Plan Progress sEMG, seated exercises.
--- NOTE | 2021-05-19 11:23 | PT.OTN ---
Current Diagnoses Cystocele, midline (05/19/21) Physical Therapy Treatment Note PT-OP-A Visit Information Start: 04/14/21 09:06 Freq: Status: Active Protocol: Document 05/19/21 10:35 AMB (Rec: 05/19/21 11:22 AMB [id number]) Out-Patient Physical Therapy Visit Information Visit Information Visit Type Treatment Note Visit Start Time 10:30 Visit Stop Time 11:15 Total Visit Minutes 45 Visit Number 3 PT-OP-B Current Condition Start: 04/14/21 09:06 Freq: Status: Active Protocol: Document 04/14/21 09:00 AMB (Rec: 04/14/21 09:59 AMB [id number]) Current Condition History of Current Condition Onset Date September 2020 Current Complaints Nervous about bearing down to have a bowel movement after prolapse surgery History of Current Condition [place] had a hysterectomy back in September for prolapse. She has a long history of constipation and diarrhea, worried about pushing to have a bowel movement hurting the surgery. History of vaginal deliveries with episiotomy. Did have cystocele and rectocele before surgery. Treatment Goals Patient/Caregiver Goals Be able to have a bowel movement without fear Prior Functional Status Baseline Function- ADL's Independent Baseline Function- Mobility Independent Current Functional Impairments (Reported) Functional Limitations- ADL's Difficulty with bowel movements after prolapse surgery Personal Factors Other Personal Factors That May Effect Osteoporosis Therapy/Recovery PT-OP-C Subjective Start: 04/14/21 09:06 Freq: Status: Active Protocol: Document 05/19/21 10:30 AMB (Rec: 05/19/21 11:23 AMB [id number]) OP-PT Subjective Patient Comments Patient Comments Pt reports she is doing better , still constipated, but not as worried about it with current techniques taught in therapy. PT-OP-I Pelvic Floor Start: 04/14/21 09:06 Freq: Status: Active Protocol: Document 04/14/21 09:00 AMB (Rec: 04/14/21 13:38 AMB [email or web address]) Pelvic Floor Assessment Urine Pelvic Floor Surgery Yes: lap/vaginal hysterectomy posterior repair sacrospi Urinary Symptoms Falling Out Feeling/Heavy Leakage Size Small Leakage Cause Cough,Sneeze Other Leakage Causes sit to stand Voiding Frequency 6/day Nocturia 2-3 Urine Pad Type Panty Liner Bowel Bowel Symptoms Constipation,Fecal Leakage [place] Stool Chart Comments varies between 1-7 Comments Pelvic Floor Comments [place] declined internal exam today as she was not aware that that was a part of pelvic floor PT. She does have rare fecal incontinence associated with diarrhea. Long history of diarrhea/constipation. Drinks maybe 24oz of water a day. Does take fiber supplement but otherwise doesn 't take stool softeners. Unsure of how to do a kegel. PT-OP-Q Treatments Start: 04/14/21 09:06 Freq: Status: Active Protocol: Document 05/19/21 10:35 AMB (Rec: 05/19/21 11:22 AMB [id number]) Therapeutic Exercises Sitting Exercises 4 Sitting Exercise Name quick flicks for urge reduction 3 Sitting Exercise Name encouraged pt to contract pf with lifting, avoid straining 2 Sitting Exercise Name sit to stand with pelvic floor Reps/Minutes 2x10 1 Sitting Exercise Name roll in roll out Resistance #2 t band Comments with pelvic floor strengthening, cues for breath PT-OP-T Assessment and Plan Start: 04/14/21 09:06 Freq: Status: Active Protocol: Document 05/19/21 10:35 AMB (Rec: 05/19/21 11:22 AMB [id number]) Physical Therapy Assessment Goals Two Impairment constipation Short Term Goal (STG) [place] will increase her fluid consumption to at least 50 oz/ day. STG Duration NOT MET Buildings Painter Goal (LTG) [place] will be independent with abdominal massage to help her manage her constipation. LTG Duration MET One Impairment Strength Short Term Goal (STG) [place] will contract her pelvic floor muscles for 5 seconds without compensations with her breath or accessory muscles. STG Duration MET Buildings Painter Goal (LTG) [place] will contract her pelvic floor while moving from sit to stand to reduce risk of future progression of prolapse . LTG Duration MET Assessment Summary Assessment [place] continues to have constipation but feels she is managing as best she can. She had been jaimie her pelvic floor muscles while urinating as exercise, and was instructed to stop doing this at this appointment, and given other alternatives for strengthening. She feels she is ready for discharge. Physical Therapy Plan Discharge Physical Therapy Discharge Reasons Patient Request Discharge Comments Pt feels goals are met
== END 2021-06-14 08:38 ==
LOC: PHYS 10:30
PROVIDERS: Family Provider Internal Medicine; PCP Internal Medicine; Referring Provider Internal Medicine; Visit Provider Internal Medicine
DX: N81.11 Cystocele, midline (principal)
CPT/HCPCS: 97110; 97112; 97162

== ENCOUNTER → 2021-09-16 11:46 | Outpatient (CLI) | payer OTHER, SELFPAY ==
[2020-09-16 12:05] VITALS: BMI 23.9
--- NOTE | 2021-09-16 | DI.MRI.S_ITS ---
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 Oblique coronal thin-slice and radial thick slab HASTE through the biliary system. Dynamic axial VIBE during administration of contrast. Post-contrast coronal VIBE or 2D FLASH with fat saturation from the hepatic dome to the iliac crests. Optional diffusion weighted imaging and ADC may be performed. COMPARISON: [facility], MR, MR ABDOMEN WO/W CON, 02/03/2020, 9:52. FINDINGS: Image quality: Decreased due to respiratory motion.. Pancreas and biliary system: Minor intrahepatic biliary dilatation. Common hepatic duct measures 1.0 cm in diameter. Common bile duct measures 1.4 cm. There is normal tapering to the ampulla and there are no intrinsic filling defects. The pancreatic duct is 5 mm maximally in the pancreatic head. In the proximal tail, a multi lobulated cystic lesion inferior to the duct measures 0.9 x 1.1 cm and there are several adjacent minimally prominent side branches. There is motion artifact on several postcontrast sequences which decreases image resolution. There is no obvious enhancing pancreatic mass or enhancement of the cystic process. Solid organs: The liver is normal size and demonstrates slight signal drop on T1 out of phase imaging. There are occasional subcentimeter hyperintensities. Adrenal glands and spleen are normal size. Numerous bilateral cortical renal cysts. The largest unilocular cyst arises from the right kidney measuring 7.5 cm. There is a possible solid enhancing mass in the anterior right kidney measuring 1.4 cm Nodes and vessels: No retroperitoneal or mesenteric adenopathy by size criteria. Aorta and inferior vena cava are normal in size. Bowel and peritoneum: Extensive diverticulosis seen throughout the colon. Stomach and small bowel are decompressed. Unenhanced bowel loops are normal in caliber throughout. No free fluid. Lung bases: No basal pleural effusions. Heart size is normal. Bones and soft tissues: No ventral hernias. Bone marrow is normal in overall signal. IMPRESSION: 1. 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 Continued annual follow-up recommended. 2. Possible 1.4 cm anterior right renal mass. Differential diagnosis includes an involuting hemorrhagic cyst. Given patient difficulty with breath hold, further evaluation with renal protocol CT is recommended. 3. Colonic diverticulosis. Dictated by: Fatimah Garcia M.D. on 09/16/2021 at 15:16 Approved by: Fatimah Garcia M.D. on 09/16/2021 at 15:34
== END ==
PROVIDERS: Family Provider Internal Medicine; PCP Internal Medicine; Referring Provider Internal Medicine Gastroenterology; Visit Provider Internal Medicine Gastroenterology
DX: D49.0 Neoplasm of unspecified behavior of digestive system (principal); N28.89 Other specified disorders of kidney and ureter; K57.90 Diverticulosis of intestine, part unspecified, without perforation or abscess without bleeding
CPT/HCPCS: 74183

== ENCOUNTER → 2021-10-21 10:16 | Outpatient (CLI) | payer OTHER, SELFPAY ==
[2020-09-16 12:05] VITALS: BMI 23.9
--- NOTE | 2021-10-21 | DI.CT.S_ITS ---
PROCEDURE: CT ABDOMEN WO/W CON INDICATIONS: ABNORMAL MRI OF THE ABDOMEN/RENAL MASS? TECHNIQUE: Optional 5 mm thick noncontrast images acquired from the diaphragm to the iliac crests. After the administration of intravenous contrast, 5 mm thick images again acquired from the diaphragm to the iliac crests in the arterial and urographic phases. 5 mm thick coronal and sagittal reformats were then acquired. For radiation dose reduction, the following was used: automated exposure control, adjustment of mA and/or kV according to patient size. COMPARISON: [facility], , MR ABDOMEN WO/W CON, 09/16/2021, 12:16. FINDINGS: Image quality: Excellent. Lung bases: Lung bases are clear. Heart size is normal. Genitourinary: The kidneys are symmetric in size. There is a large low-density left renal cyst and an exophytic upper pole right renal cyst. Scattered subcentimeter cortical cysts are also present bilaterally. There are 2 mm nonobstructing calculi within the lower pole of the right kidney. No suspicious renal enhancement. No suspicious renal mass lesions. Specifically, there is no renal mass visualized in the region questioned on the comparison MRI dated September 16, 2021. The bilateral ureters demonstrate normal course and caliber where visualized. Other solid organs: Liver is normal in size and enhancement. Gallbladder is unremarkable . Biliary system is non dilated. Pancreas enhances normally. Spleen is normal in size and enhancement. No adrenal nodules. Peritoneum and bowel: Unenhanced bowel loops are normal in wall thickness and caliber. No free fluid or air. Nodes and vessels: No retroperitoneal or mesenteric adenopathy by size criteria. Aorta and inferior vena cava are normal in caliber. There are scattered atheromatous calcifications throughout the aorta and iliac arteries bilaterally. Bones: No suspicious bony lesions. No vertebral body compression fractures. Miscellaneous: No ventral hernias. IMPRESSION: 1. No suspicious renal mass lesion in the regions suspected on the comparison MRI dated September 16, 2021. This questionable renal mass may have represented artifact from the adjacent small bowel. 2. No hydronephrosis. Nonobstructing pole right nephrolithiasis. Dictated by: Agnes Amaro M.D. on 10/21/2021 at 13:05 Approved by: Agnes Amaro M.D. on 10/21/2021 at 13:24
[2021-10-21 10:56] LABS: Blood Urea Nitrogen 19 mg/dL (7-17); Calcium 9.3 mg/dL (8.4-10.2); Carbon Dioxide 28 mmol/L (22-32); Chloride 109 mmol/L (98-107); Estimated Glomerular Filt Rate > 60 mL/min (>60); Glucose 104 mg/dL (80-110); HEMOLYSIS < 15 (0-50); Potassium 4.4 mmol/L (3.4-5.1); Sodium 141 mmol/L (137-145)
== END ==
PROVIDERS: Family Provider Internal Medicine; PCP Internal Medicine; Referring Provider Internal Medicine Gastroenterology; Visit Provider Internal Medicine Gastroenterology
DX: R93.5 Abnormal findings on diagnostic imaging of other abdominal regions, including retroperitoneum (principal); N20.0 Calculus of kidney
CPT/HCPCS: 36415; 74170; 80048; Q9967

== ENCOUNTER → 2022-07-12 09:59 | Outpatient (CLI) | payer OTHER, SELFPAY ==
[2020-09-16 12:05] VITALS: BMI 23.9
--- NOTE | 2022-07-12 | DI.MG.S_ITS ---
BILATERAL DIGITAL SCREENING MAMMOGRAM 3D/2D WITH CAD: 07/12/2022 CLINICAL: Routine screening. Comparison is made to exams dated: 04/25/2021 mammogram, 04/13/2020 mammogram, and 04/07/2019 mammogram - [facility]. Both breasts are heterogeneously dense, which may obscure small masses (category c / 51-75% glandular tissue). Current study was also evaluated with a Computer Aided Detection (CAD) system. There are benign calcifications in both breasts. No significant masses, calcifications, or other findings are seen in either breast. There has been no significant interval change. IMPRESSION: BENIGN There is no mammographic evidence of malignancy. A 1 year screening mammogram is recommended. Based on the Tyrer Cuzick model (a risk assessment model) the patient's lifetime risk is 1.0% and her 10 year risk is 0.0%. According to the ACR, ACS, and NCCN guidelines, an annual breast MRI exam along with mammogram is recommended if the patient's lifetime risk is 20% or greater. This exam was interpreted at Station ID: [id number]. NOTE: For mammograms, a report in lay terms will be sent to the patient. Approximately 15% of breast malignancies will not be visualized mammographically. In the management of a palpable breast mass, a negative mammogram must not discourage biopsy of a clinically suspicious lesion. Electronically Signed By: Musa Darby M.D., jr/jamison:07/13/2022 13:11:09 letter sent: Normal Exam ACR BI-RADS Category 2: Benign Finding(s) 3342F
== END ==
PROVIDERS: Referring Provider Internal Medicine; Visit Provider Internal Medicine
DX: Z12.31 Encounter for screening mammogram for malignant neoplasm of breast (principal)
CPT/HCPCS: 77063; 77067

== ENCOUNTER → 2022-10-11 09:21 | Outpatient (CLI) | payer OTHER, SELFPAY ==
[2020-09-16 12:05] VITALS: BMI 23.9
--- NOTE | 2022-10-11 | DI.ECHO.S_ITS ---
[facility] +---------+ : : [address] : [place] : : : : [id number] : : : : Phone: [phone]+ Echocardiogram Report + + :Name: EDMAR SNOW Study Date: 10/11/2022 Height: 65 in : :[facility] ReadingLocation: Weight: 140 lb : : Gender: Female BSA: 1.7 m2 : :: 1940 Age: 82 yrs BP: 132/71 mmHg: :Reason For Study: DYSPNEA ON EXERTION : :Ordering Physician: FADIA : :RUTH Performed By: Diamond Aguilar : :Referring: RUTH LOAIZA : + + Interpretation Summary 1) Normal left ventricular thickness, size, wall motion, and systolic function (EF 55-60%). 2) Normal right ventricular size and function. 3) No significant valvular abnormalities. 4) No prior Echo available for comparison. Procedure: A two-dimensional transthoracic echocardiogram with color flow and Doppler was performed. The study quality was technically adequate. There is no prior echocardiogram noted for this patient. The patient was in sinus rhythm with heart rates between 63-69 bpm during the exam. Left Ventricle: Proximal septal thickening is noted. The left ventricle is normal in size and wall thickness. There is no echo evidence for significant left ventricular outflow tract obstruction. The ejection fraction is estimated to be 55-60%. Left ventricular systolic function appears normal without focal wall motion abnormalities. Diastolic function could not be accurately assessed due to contradictory data. Right Ventricle: The right ventricle is normal in size and function. Atria: The left atrial size is normal. Right atrial size is normal. There is no Doppler evidence for an interatrial shunt. Mitral Valve: The mitral valve leaflets appear borderline thickened, but open well. There is mild mitral regurgitation. Aortic Valve: The aortic valve is trileaflet. The aortic valve opens well. There is no aortic valve stenosis. No aortic regurgitation is present. Tricuspid Valve: The tricuspid valve is normal in structure and function. There is mild tricuspid regurgitation. The right ventricular systolic pressure is estimated to be at least 18 mmHg based on an estimated right atrial pressure of 3 mm Hg. Pulmonic Valve: The pulmonic valve leaflets are thin and pliable; valve motion is normal. There is trace pulmonic regurgitation. Great Vessels: The aortic root is normal size. The dimensions of the ascending aorta are normal. The IVC is of normal diameter and collapses greater than 50% with a sniff. This suggests a low right atrial pressure of 3 mm Hg. Pericardium/ Pleura There is no pericardial effusion. There is no pleural effusion. MMode/2D Measurements & Calculations LVIDd: 4.4 cm LVOT diam: 2.0 cm LVIDs: 3.2 cm Ao root diam: 3.2 cm FS: 27.7 % asc Aorta Diam: 3.2 cm IVSd: 0.88 cm Ao Arch Diam (Prox Trans): 3.3 cm LVPWd: 0.91 cm LV enriquez. diameter/BSA (cm/m^2): 2.6 LV sys. diameter/BSA (cm/m^2): 1.9 LA A2 area: 19.1 cm2 RA long axis: 4.0 cm LA A4 area: 15.9 cm2 RA area: 11.9 cm2 LA length (vol): 4.9 cm RA vol: 30.1 ml LA vol: 52.5 ml RA : 17.7 ml/m2 LA vol index: 30.9 ml/m2 IVC diam: 1.6 cm RVD1 (basal): 3.3 cm RVD2 (mid): 2.3 cm TAPSE: 1.9 cm Doppler Measurements & Calculations Ao V2 max: 133.7 cm/sec LVOT Max Samuel: 154.6 cm/sec Ao V2 mean: 101.8 cm/sec LV V1 max P.6 mmHg Ao max P.2 mmHg LV V1 VTI: 39.8 cm Ao mean P.5 mmHg MANINDER(I,D): 3.5 cm2 Ao V2 VTI: 35.3 cm MANINDER(V,D): 3.6 cm2 sev ratio: 1.1 MANINDER indexed to BSA (cm^2/m^2): 2.1 MV E max samuel: 95.3 cm/sec TR max samuel: 194.2 cm/sec MV A max samuel: 112.4 cm/sec TR max P.1 mmHg MV E/A: 0.85 PA V2 max: 92.3 cm/sec Med Peak E' Samuel: 5.1 cm/sec PA V2 mean: 62.8 cm/sec E/E' med: 18.7 PA mean P.8 mmHg Lat Peak E' Samuel: 6.6 cm/sec PA pr(Accel): 36.2 mmHg E/E' lat: 14.5 E/e' average: 16.6 MV dec time: 0.34 sec SVLVOT): 122.9 ml Reading Physician:03:34 PM
== END ==
PROVIDERS: PCP Internal Medicine; Referring Provider Internal Medicine; Visit Provider Internal Medicine
DX: R06.09 Other forms of dyspnea (principal)
CPT/HCPCS: 93306

== ENCOUNTER → 2023-07-12 15:29 | Outpatient (CLI) | payer OTHER, SELFPAY ==
[2020-09-16 12:05] VITALS: BMI 23.9
--- NOTE | 2023-07-12 15:31 | DI.MG.S_ITS ---
BILATERAL DIGITAL SCREENING MAMMOGRAM 3D/2D WITH CAD: 07/12/2023 CLINICAL: Routine screening. Family history of breast cancer. Comparison is made to exams dated: 07/12/2022 mammogram, 04/25/2021 mammogram, and 04/13/2020 mammogram - [facility]. Both breasts are heterogeneously dense, which may obscure small masses (category c / 51-75% glandular tissue). Current study was also evaluated with a Computer Aided Detection (CAD) system. There are benign calcifications in both breasts. No significant masses, calcifications, or other findings are seen in either breast. There has been no significant interval change. IMPRESSION: BENIGN There is no mammographic evidence of malignancy. A 1 year screening mammogram is recommended. Based on the Tyrer Cuzick model (a risk assessment model) the patient's lifetime risk is 0.8% and her 10 year risk is 0.0%. According to the ACR, ACS, and NCCN guidelines, an annual breast MRI exam along with mammogram is recommended if the patient's lifetime risk is 20% or greater. This exam was interpreted at Station ID: [id number]. NOTE: For mammograms, a report in lay terms will be sent to the patient. Approximately 15% of breast malignancies will not be visualized mammographically. In the management of a palpable breast mass, a negative mammogram must not discourage biopsy of a clinically suspicious lesion. Electronically Signed By: Esau merritt/jamison:07/12/2023 16:03:44 letter sent: Normal Exam ACR BI-RADS Category 2: Benign Finding(s) 3342F
== END ==
LOC: MAMMO 15:30
PROVIDERS: PCP Internal Medicine; Referring Provider Internal Medicine; Visit Provider Internal Medicine
DX: Z12.31 Encounter for screening mammogram for malignant neoplasm of breast (principal); Z80.3 Family history of malignant neoplasm of breast; R92.333 Mammographic heterogeneous density, bilateral breasts
CPT/HCPCS: 77063; 77067

== ENCOUNTER → 2023-08-27 11:46 | Outpatient (CLI) | payer MEDICARE, SELFPAY ==
[2020-09-16 12:05] VITALS: BMI 23.9
--- NOTE | 2023-08-27 | DI.RAD.S_ITS ---
PROCEDURE: XR DEXA AXIAL SKELETON INDICATIONS: Asymptomatic menopausal state COMPARISON: [facility], [place], XR DEXA AXIAL SKELETON, 08/28/2018, 14:41. FINDINGS: Lumbar Spine: L2-L4 Bone mineral density 0.909 g/cm2, T score -1.5. Left Hip: Bone mineral density 0.752 g/cm2, T score -1.6. Left Femoral Neck: Bone mineral density 0.617 g/cm2, T score -2.1. Right Hip: Bone mineral density 0.777 g/cm2, T score -1.4. Right Femoral Neck: Bone mineral density 0.622 g/cm2, T score -2.0. Fracture Risk Calculation (when applicable): 10-year fracture risk of a major osteoporotic fracture 15% and of a hip fracture 4.8%. (T score greater or equal to -1.0 to: NORMAL) (T score from -1.1 to -2.4: OSTEOPENIA) (T score less than or equal to -2.5: OSTEOPOROSIS) IMPRESSION: Osteopenia. Dictated by: Esau Moses M.D. on 08/27/2023 at 15:31 Approved by: Esau Moses M.D. on 08/27/2023 at 15:33
== END ==
PROVIDERS: PCP Internal Medicine; Referring Provider Internal Medicine; Visit Provider Internal Medicine
DX: Z78.0 Asymptomatic menopausal state (principal); M85.89 Other specified disorders of bone density and structure, multiple sites
CPT/HCPCS: 77080